=== PATIENT | male | born 2000 | race Caucasian/White ===

== ENCOUNTER → 2021-09-06 08:22 | Outpatient (CLI) | payer BC, SELFPAY ==
--- NOTE | ~2021-09-06 | XR_ITS ---
XR clavicle RT, XR shoulder RT min 2V 09/06/2021 09:33 INDICATION: Right shoulder pain PROCEDURE: 4 views right shoulder and 2 views right clavicle COMPARISON: No prior studies for comparison. FINDINGS: Fracture, dislocation or subluxation is not identified. The soft tissues appear within norm al limits. No foreign bodies are identified. IMPRESSION: 1: NO ACUTE BONE OR JOINT ABNORMALITY IDENTIFIED. Reviewed, dictated and finalized at location A. IMPRESSION: 1: NO ACUTE BONE OR JOINT ABNORMALITY IDENTIFIED.
--- NOTE | ~2021-09-06 | XR_ITS ---
EXAM: [id number]_[id number] DATE: 09/06/2021 09:33 HISTORY: Pain in right upper arm . COMPARISON: None available. FINDINGS: Craniocervical association and atlantoaxial joint are normal. No prevertebral soft tissue swelling. Vertebral bodies are aligned. Vertebral body heights and disc spaces are maintained. Normal facets and posterior elements. IMPRESSION: Normal cervical spine radiograph findings. Reviewed, dictated and finalized at location K.
== END ==
PROVIDERS: PCP Emergency Medicine; Visit Provider Emergency Medicine
DX: M79.621 Pain in right upper arm (principal)
CPT/HCPCS: 72040; 73000; 73030

== ENCOUNTER → 2022-01-19 11:10 | Outpatient (CLI) | payer BC, SELFPAY ==
--- NOTE | ~2022-01-19 | US_ITS ---
US abdomen complete DATE: 01/19/2022 11:34 INDICATION: Elevated serum bilirubin. Disorder of bilirubin metabolism. TECHNIQUE: Real-time imaging and Doppler analysis of the abdomen COMPARISON: None FINDINGS: No hepatic or pancreatic space-occupying mass lesion is detected. Normal hepatopedal portal venous flow direction. No gallstones or gallbladder wall thickening or pericholecystic abnormal fluid collection. Negative s onographic Salinas's sign. The common bile duct measures 4 mm, normal. Normal splenic size. No renal mass lesion or hydronephrosis. Normal caliber of the abdominal aorta. T he inferior vena cava is unremarkable. IMPRESSION: Normal examination. No evidence of dilated bile ducts. Reviewed, dictated and finalized at Location A. Reviewed, dictated and finalized at location B. [employer] MA[employer]GER
== END ==
PROVIDERS: PCP Emergency Medicine; Visit Provider Emergency Medicine
DX: E80.7 Disorder of bilirubin metabolism, unspecified (principal)
CPT/HCPCS: 76700